=== PATIENT | female | born 1970 | race Caucasian/White ===

== ENCOUNTER → 2017-03-16 | Outpatient (CLI) | payer OTHER ==
--- NOTE | 2017-03-16 11:28 | RAD ---
PROCEDURE: Chest,2 Views CLINICAL HISTORY: URI INDICATION: Same as above COMPARISON: None TECHNIQUE: PA and and lateral chest radiographs were obtained. FINDINGS: The lung khanna are well inflated. There are no discrete airspace infiltrates, pneumothoraces or pleural effusions. The pulmonary vascularity is normal The cardiomediastinal silhouette is unremarkable for patient's age and sex. IMPRESSION: There is no acute pleural-parenchymal process seen in the imaged lung khanna. Place of interpretation: Teleradiology. Electronically signed by: Jeffery Murray MD 03/16/2017 11:27 AM [facility] Workstation: [id number]
== END ==
LOC: LAB.O 10:38
PROVIDERS: ATTEND Nurse Practitioner Family
DX: J06.9 Acute upper respiratory infection, unspecified (principal)

== ENCOUNTER → 2019-10-14 | Outpatient (CLI) | payer OTHER ==
--- NOTE | 2019-10-15 15:03 | US ---
EXAM DESCRIPTION: Abdomen,Limited: ULTRASOUND. CLINICAL HISTORY: LEFT UPPER QUADRANT PAIN. Mostly anterior. COMPARISON: None. TECHNIQUE: Anterior abdominal wall: The region of pain was scanned. No soft tissue mass, no distinct cyst, no fluid collection, and no large calcifications. No overlying skin changes. Left kidney: measures 9.9 x 5.1 x 5.3 cm; volume 138.6 ml. Cortical echogenicity is normal. Normal cortical thickness. No echogenic stones; no hydronephrosis. No perirenal fluid. Spleen: Reduced visualization. Long axis X.7 cm. No focal lesions and no ascites. IMPRESSION: Left kidney and spleen unremarkable. No ascites. Tender region on the anterior abdominal wall negative. Electronically signed by: Filemon Camarena MD 10/15/2019 3:02 PM CDT
== END | disposition home or self-care (01) ==
LOC: US 14:02
PROVIDERS: ATTEND Nurse Practitioner Family
DX: R10.12 Left upper quadrant pain (principal)